=== PATIENT | male | born 1950 | race Caucasian/White ===

== ENCOUNTER 2019-10-25 12:35 | Emergency (ER) | payer MEDICARE ==
[~2019-10-25] VITALS: Ht 165.1 cm; Wt 75.6 kg
--- NOTE | 2019-10-25 12:57 | NUR ---
PT A&OX4, RESP EVEN & UNLABORED, SPEECH CLEAR, SKIN WNL. C/O PAIN TO RT RIB AREA AT DIAPHRAGM W/ COUGHING, MOVING, STRETCHING. SX STARTED TODAY. REPORTS SIMILAR SX LAST MONTH IN [place] ON LT SIDE; WAS GIVEN MEDICINE FOR 5 DAYS "AND PAIN WENT AWAY". DENIES TRAUMA, RECENT URI SX. NO PAIN MED TAKEN TODAY.
[2019-10-25] MEDS ORDERED: [UNRECOGNIZED DRUG - OTHER] (13:00)
--- NOTE | 2019-10-25 13:20 | NUR ---
CXR DONE. PIV INITIATED: 20G LAC. EKG AT BS
--- NOTE | 2019-10-25 13:28 | NUR ---
AMBULATORY TO & FROM [facility] W/OUT INCIDENT; GAIT STEADY; VOIDED SPECIMEN PROVIDED. PT AWAITING CT
[2019-10-25] MEDS ORDERED: SODIUM CHLORIDE FLUSH 10ML SYR IVF ONE (13:30)
[2019-10-25 13:43] LABS: BASOPHILS # (AUTO) 0.03 x10^3/uL (0-0.1); BASOPHILS % (AUTO) 0 % (0-1); EOSINOPHILS # (AUTO) 0.09 x10^3/uL (0-0.4); EOSINOPHILS % (AUTO) 1 % (1-7); LYMPHOCYTES # (AUTO) 1.83 x10^3/uL (1-3.4); LYMPHOCYTES % (AUTO) 24 % (22-44); MD NO; MEAN CORPUSCULAR HEMOGLOBIN 29.6 pg (27.5-34.5); MEAN CORPUSCULAR HGB CONC 33.7 g/dL (33.2-36.2); MEAN PLATELET VOLUME 9.6 fL (7.4-10.4); MONOCYTES # (AUTO) 0.67 x10^3/uL (0.2-0.8); MONOCYTES % (AUTO) 9 % (2-9); NEUTROPHILS # (AUTO) 4.91 x10^3/uL (1.8-6.8); NEUTROPHILS % (AUTO) 65 % (42-75); PLATELET COUNT 258 x10^3/uL (130-400); RED BLOOD COUNT 5.37 x10^6/uL (4.38-5.82); RED CELL DISTRIBUTION WIDTH 14.3 % (9.4-14.8)
[2019-10-25 13:50] LABS: ALANINE AMINOTRANSFERASE 53 U/L (12-78); ANION GAP 8 mmol/L (5-15); CALCIUM 8.9 mg/dL (8.5-10.1); CHLORIDE 110 mmol/L (98-107); CREATININE 0.95 mg/dL (0.7-1.3)
[2019-10-25 13:52] LABS: ALKALINE PHOSPHATASE 77 U/L (45-117); BILIRUBIN,TOTAL 0.5 mg/dL (0.2-1.0); TOTAL PROTEIN 7.9 g/dL (6.4-8.2)
[2019-10-25 13:55] LABS: MICROSCOPIC NOT IND
[2019-10-25 13:56] LABS: CULTURE INDICATED? NO
--- NOTE | 2019-10-25 14:05 | NUR ---
TO CT PER JOSE
[2019-10-25] MEDS ORDERED: OMNIPAQUE 350 MG/ML, 100ML BOTTLE ONE (14:21)
[2019-10-25] MEDS ORDERED: CHOLESTEROL MED (14:44)
--- NOTE | 2019-10-25 15:20 | NUR ---
Call placed to general surgery
[2019-10-25 16:13] VITALS: BP 151/71
== END 2019-10-25 16:16 | disposition home or self-care (01) ==
LOC: ED 13:03
DX: K40.90 Unilateral inguinal hernia, without obstruction or gangrene, not specified as recurrent (principal); R05 Cough; I10 Essential (primary) hypertension
CPT/HCPCS: 36415; 71045; 74177; 80053; 81003; 83605; 83690; 85025; 93005; 99285; Q9967

== ENCOUNTER 2021-02-21 16:59 | Emergency (ER) | payer MEDICARE ==
[~2021-02-21] VITALS: Ht 165.1 cm; Wt 74.9 kg
[~2021-02-21 16:59] MED LIST: CHOLESTEROL MED; [UNRECOGNIZED DRUG - OTHER]
[2021-02-21 18:00] LABS: BASOPHILS % (AUTO) 1 % (0-1); EOSINOPHILS % (AUTO) 1 % (1-7); LYMPHOCYTES % (AUTO) 30 % (22-44); MEAN CORPUSCULAR HEMOGLOBIN 29.8 pg (27.5-34.5); MEAN CORPUSCULAR HGB CONC 33.7 g/dL (33.2-36.2); MEAN PLATELET VOLUME 9.4 fL (7.4-10.4); MONOCYTES % (AUTO) 7 % (2-9); NEUTROPHILS % (AUTO) 62 % (42-75); PLATELET COUNT 233 x10^3/uL (130-400); RED BLOOD COUNT 5.37 x10^6/uL (4.38-5.82)
--- NOTE | 2021-02-21 18:03 | NUR ---
senior clinical data analyst: Pt ambulatory to room from lobby at this time.
[2021-02-21 18:06] LABS: ALBUMIN 3.8 g/dL (3.4-5.0); ANION GAP 9 mmol/L (5-15); CALCIUM 8.8 mg/dL (8.5-10.1); CHLORIDE 111 mmol/L (98-107)
[2021-02-21 18:13] LABS: ALANINE AMINOTRANSFERASE 37 U/L (12-78); ALKALINE PHOSPHATASE 74 U/L (45-117); BILIRUBIN,TOTAL 0.4 mg/dL (0.2-1.0); CREATININE 0.87 mg/dL (0.7-1.3); TOTAL PROTEIN 7.3 g/dL (6.4-8.2); TROPONIN I 0.037 ng/mL (0.000-0.045)
[2021-02-21] MEDS ORDERED: SODIUM CHLORIDE 0.9% 1,000ML IVBOLUS ONE (18:30)
[2021-02-21] MEDS ORDERED: SODIUM CHLORIDE FLUSH 10ML SYR IVF ONE (18:30)
--- NOTE | 2021-02-21 18:42 | NUR ---
PIV EST AND IVF INFUSING W/O DIFFICULTY. VSS, CALL LIGHT W/I REACH
--- NOTE | 2021-02-21 18:52 | NUR ---
BEDSIDE REPORT FROM JUNO, TRANSFER OF CARE AT THIS TIME
--- NOTE | 2021-02-21 19:42 | NUR ---
Patient is resting comfortably in bed. Bed in lowest, rails engaged, call light on lap. Vital Signs within normal limits. WCTM.
--- NOTE | 2021-02-21 20:17 | NUR ---
PT AMBULATED WITH STEADY GAIT REPORTS FEELING BETTER ERP UPDATED
[2021-02-21 20:25] VITALS: BP 149/86
--- NOTE | 2021-02-21 20:38 | NUR ---
Patient/Caregiver given discharge instructions and they have confirmed that they understand the instructions. Patient ambulatory with steady gait. NAD, all questions answered appropriately, denies additional needs at this time. No personal belongings left in room after discharge.
== END 2021-02-21 20:39 | disposition home or self-care (01) ==
LOC: ED 17:30
DX: R55 Syncope and collapse (principal); R42 Dizziness and giddiness; I10 Essential (primary) hypertension; I45.19 Other right bundle-branch block
CPT/HCPCS: 36415; 71045; 80053; 84484; 85025; 93005; 96360; 96361; 99285; J7030

== ENCOUNTER 2021-02-26 10:07 | Emergency (ER) | payer MEDICARE ==
[~2021-02-26] VITALS: Ht 165.1 cm; Wt 73.3 kg
[2021-02-26 10:10] VITALS: BP 173/65
--- NOTE | 2021-02-26 10:20 | NUR ---
EKG COMPLETED IN TRIAGE. FS 109. PT STATES SUGAR HIGH LAST VISIT.
--- NOTE | 2021-02-26 10:26 | NUR ---
PT AMBULATES WITH STEADY GAIT TO TR 02 FROM TRIAGE. PT CHANGED INTO GOWN AND RESTING IN GURNEY WITH CALL LIGHT WITHIN REACH; AWAITING ERP FOR PT HISTORY AND ASSESSMENT.
[2021-02-26] MEDS ORDERED: MECLIZINE CHEWABLE 25 MG TAB ONE (10:38)
--- NOTE | 2021-02-26 10:41 | NUR ---
PT MEDICATED PER MAR AT THIS TIME.
--- NOTE | 2021-02-26 10:52 | NUR ---
REPORT RECEIVED FROM TIFFANIE CARROLL. ASSUMING CARE AT THIS TIME.
--- NOTE | 2021-02-26 10:54 | NUR ---
REPORT OF PT TO CARLY WALLER. ALL QUESTIONS ANSWERED.
[2021-02-26] MEDS ORDERED: MECLIZINE CHEWABLE 25 MG TAB PO ONE (11:00)
--- NOTE | 2021-02-26 11:04 | NUR ---
PRESCHOOL AIDE AT BEDSIDE FOR EAR IRRIGATION. THEN PT DC
== END 2021-02-26 11:31 | disposition home or self-care (01) ==
LOC: ED 11:25
DX: H81.392 Other peripheral vertigo, left ear (principal); H81.12 Benign paroxysmal vertigo, left ear; H61.22 Impacted cerumen, left ear; I10 Essential (primary) hypertension
CPT/HCPCS: 69209; 82962; 93005; 99283

== ENCOUNTER 2021-02-26 12:25 | Emergency (ER) | payer MEDICARE ==
[~2021-02-26] VITALS: Ht 165.1 cm; Wt 72.2 kg
[2021-02-26 12:29] VITALS: BP 171/68
--- NOTE | 2021-02-26 12:53 | NUR ---
PT TO RM FROM [facility] AT THIS TIME
[2021-02-26] MEDS ORDERED: CARBAMIDE PEROXIDE EAR DROPS 6.5%, 15ML EACH EAR ONE (13:30)
--- NOTE | 2021-02-26 13:30 | NUR ---
DR PEARSON IN TO SEE PT.
[2021-02-26] MEDS ORDERED: CARBAMIDE PEROXIDE EAR DROPS 6.5%, 15ML ONE (13:47)
[2021-02-26 13:52] LABS: BASOPHILS % (AUTO) 0 % (0-1); EOSINOPHILS % (AUTO) 0 % (1-7); LYMPHOCYTES % (AUTO) 21 % (22-44); MEAN CORPUSCULAR HGB CONC 33.7 g/dL (33.2-36.2); MEAN PLATELET VOLUME 9.1 fL (7.4-10.4); MONOCYTES % (AUTO) 9 % (2-9); NEUTROPHILS % (AUTO) 69 % (42-75); PLATELET COUNT 260 x10^3/uL (130-400); RED BLOOD COUNT 5.44 x10^6/uL (4.38-5.82)
[2021-02-26 13:53] LABS: ANION GAP 8 mmol/L (5-15); CHLORIDE 109 mmol/L (98-107); CREATININE 0.86 mg/dL (0.7-1.3)
--- NOTE | 2021-02-26 14:42 | NUR ---
EMT IRRIGATED BILAT EAR POST DEBROX. NOT MUCH WAX REMOVED, WILL UPDATE ERP
[2021-02-26] MEDS ORDERED: DOCUSATE 50 MG/5 ML, 10ML UDC ONE (14:55)
--- NOTE | 2021-02-26 16:21 | NUR ---
SECOND ATTEMPT AT IRRIGATION OF L EAR SUCCESSFUL, WILL UPDATED ERP.
--- NOTE | 2021-02-26 17:34 | NUR ---
PT C/O DIZZINESS UPON [address] RO[address] TEST, ERP UPDATED
[2021-02-26] MEDS ORDERED: MECLIZINE CHEWABLE 25 MG TAB ONE (17:54)
[2021-02-26] MEDS ORDERED: MECLIZINE CHEWABLE 25 MG TAB PO ONE (18:00)
== END 2021-02-26 18:13 | disposition home or self-care (01) ==
LOC: ED 15:06
DX: H61.23 Impacted cerumen, bilateral (principal); R42 Dizziness and giddiness; I10 Essential (primary) hypertension; F17.200 Nicotine dependence, unspecified, uncomplicated
CPT/HCPCS: 36415; 69209; 80048; 85025; 99283